=== PATIENT | female | born 2005 | race African-American/Black ===

== ENCOUNTER 2023-12-15 08:00 | Outpatient (CLI) | payer OTHER ==
[2023-12-15 17:33] LABS: BILIRUBIN,URINE NEGATIVE (NEGATIVE); GLUCOSE, URINE (UA) NEGATIVE (NEGATIVE); KETONES,URINE (UA) NEGATIVE (NEGATIVE); LEUKOCYTE ESTERASE, URINE NEGATIVE (NEGATIVE); NITRITE,URINE NEGATIVE (NEGATIVE); OCCULT BLOOD,URINE NEGATIVE (NEGATIVE); PROTEIN,URINE NEGATIVE (NEGATIVE); UROBILINOGEN,URINE 0.2 (NORMAL) E.U./dL (NORMAL)
[2023-12-15 17:58] LABS: CLARITY,URINE CLEAR (CLEAR)
[2023-12-15 17:59] LABS: AMORPHOUS SEDIMENT,UR Rare /LPF; BACTERIA,URINE Few /HPF (None Seen); RBC,URINE None Seen /HPF (0-5); SQUAMOUS EPITHELIAL CELL,UR MANY Squamous (<= Few); WBC,URINE 0-3 /HPF (0-5)
== END 2023-12-15 23:59 | disposition home or self-care (01) ==
LOC: LAB.WC 08:00
PROVIDERS: ATTEND Nurse Practitioner
DX: Z34.00 Encounter for supervision of normal first pregnancy, unspecified trimester (principal)
CPT/HCPCS: 81001; 87086

== ENCOUNTER 2023-12-25 13:07 | Outpatient (CLI) | payer OTHER ==
--- NOTE | 2023-12-25 14:19 | Ultrasound Report ---
PROCEDURE: OB 1st Trimester INDICATIONS: TEST POSITIVE OUTSIDE/PRIOR DATING DATA: Last menstrual period (LMP): 10/24/2023. LMP-based estimated date of delivery (KUSH): 07/30/2024. First dating scan (date and location): Today's exam. Estimated date of delivery (KUSH) from first dating scan: 07/30/2024. TECHNIQUE: Real-time scanning was performed of the fetus and maternal pelvic organs, with image documentation. COMPARISON: None. FINDINGS: Intrauterine gestational sac present. Embryo: Measures 2.24 cm, corresponding to 8 weeks 6 days. Heart rate: 171 bpm. Other: No perigestational fluid collection. Measurement variability in dating: +/- 4 weeks by LMP, +/- 7 days by mean sac diameter (use before 6 weeks gestation if crown-rump length not able to be measured), +/- 5 days by crown-rump length (6-12 weeks gestation). Maternal organs: Left ovary not visualized due to overlying bowel gas. Right ovary is unremarkable. IMPRESSION: Single living intrauterine at 8 weeks 6 days, KUSH of 07/30/2024, concordant with clinical da peggy. Reviewed by: Davie Capps MD on 12/25/2023 2:17 PM PST Approved by: Davie Capps MD on 12/25/2023 2:17 PM PST Station ID: [id number]
== END 2023-12-25 13:08 | disposition home or self-care (01) ==
LOC: DI 13:07
PROVIDERS: ATTEND Nurse Practitioner
DX: Z34.01 Encounter for supervision of normal first pregnancy, first trimester (principal)

== ENCOUNTER 2024-01-05 10:49 | Outpatient (CLI) | payer OTHER ==
[2024-01-05 11:07] LABS: BASOPHILS % (AUTO) 0.4 %; EOSINOPHILS # (AUTO) 0.3 10^3/uL (0.0-0.7); EOSINOPHILS % (AUTO) 3.2 %; HCT - HEMATOCRIT 40.4 % (37.0-47.0); HGB - HEMOGLOBIN 14.1 g/dL (12.0-16.0); MEAN CORPUSCULAR HEMOGLOBIN 31.9 pg (27.0-31.0); MEAN CORPUSCULAR HGB CONC 34.9 g/dL (32.0-36.0); MEAN CORPUSCULAR VOLUME 91.4 fL (81.0-99.0); MEAN PLATELET VOLUME 9.7 fL (7.9-10.8); MONOCYTES # (AUTO) 0.4 10^3/uL (0.0-1.0); MONOCYTES % (AUTO) 4.2 %; NEUTROPHILS # (AUTO) 5.7 10^3/uL (1.5-6.6); PLT - PLATELET COUNT 256 10^3/uL (130-450); RED BLOOD COUNT 4.42 10^6/uL (4.20-5.40); WHITE BLOOD COUNT 8.3 x10^3/uL (4.8-10.8)
[2024-01-06 05:12] LABS: HCV AB Non Reactive (Non Reactive); HIV SCREEN 4TH GENERATION Non Reactive (Non Reactive)
[2024-01-06 06:10] LABS: HBsAG SCREEN Negative (Negative); RPR Non Reactive (Non Reactive)
[2024-01-06 09:09] LABS: VARICELLA-ZOSTER AB IGG <135 index (Immune >165)
== END 2024-01-05 10:50 | disposition home or self-care (01) ==
LOC: LAB 10:49
PROVIDERS: ATTEND Nurse Practitioner
DX: Z34.00 Encounter for supervision of normal first pregnancy, unspecified trimester (principal); Z36.89 Encounter for other specified antenatal screening
CPT/HCPCS: 36415; 85025; 86592; 86762; 86787; 86803; 86850; 86900; 86901; 87340; 87389

== ENCOUNTER 2024-01-08 08:00 | Outpatient (CLI) | payer OTHER ==
[2024-01-08 20:32] LABS: CHLAMYDIA TRACHOMATIS DNA NEGATIVE (NEGATIVE); NEISSERIA GONORRHOEAE DNA NEGATIVE (NEGATIVE)
[2024-01-08 23:27] LABS: BACTERIAL VAGINOSIS DNA POSITIVE (NEGATIVE); CANDIDA GLABRATA DNA NEGATIVE (NEGATIVE); CANDIDA GROUP DNA POSITIVE (NEGATIVE); CANDIDA KRUSEI DNA NEGATIVE (NEGATIVE); TRICHOMONAS VAGINALIS DNA NEGATIVE (NEGATIVE)
== END 2024-01-08 23:59 | disposition home or self-care (01) ==
LOC: LAB.WC 08:00
PROVIDERS: ATTEND Nurse Practitioner
DX: N89.8 Other specified noninflammatory disorders of vagina (principal); Z11.3 Encounter for screening for infections with a predominantly sexual mode of transmission
CPT/HCPCS: 81514; 87491; 87591; 87661

== ENCOUNTER 2024-01-24 08:39 | Outpatient (CLI) | payer OTHER ==
[2024-01-24 22:31] LABS: BACTERIAL VAGINOSIS DNA NEGATIVE (NEGATIVE); CANDIDA GLABRATA DNA NEGATIVE (NEGATIVE); CANDIDA GROUP DNA POSITIVE (NEGATIVE); CANDIDA KRUSEI DNA NEGATIVE (NEGATIVE); TRICHOMONAS VAGINALIS DNA NEGATIVE (NEGATIVE)
== END 2024-01-24 08:40 | disposition home or self-care (01) ==
LOC: LAB.N 08:39
PROVIDERS: ATTEND Nurse Practitioner
DX: N89.8 Other specified noninflammatory disorders of vagina (principal)
CPT/HCPCS: 81514

== ENCOUNTER 2024-02-06 09:25 | Outpatient (CLI) | payer OTHER ==
[2024-02-06 10:04] LABS: THYROID STIMULATING HORMONE 0.67 uIU/mL (0.34-5.60)
== END 2024-02-06 09:26 | disposition home or self-care (01) ==
LOC: LAB 09:25
PROVIDERS: ATTEND Nurse Practitioner
DX: N95.1 Menopausal and female climacteric states (principal); R23.2 Flushing
CPT/HCPCS: 36415; 84443

== ENCOUNTER 2024-02-09 09:22 | Outpatient (CLI) | payer OTHER | END 2024-02-09 09:23 | disposition home or self-care (01) | LOC: LAB.N 09:22 | PROVIDERS: ATTEND Nurse Practitioner | DX: Z34.00 Encounter for supervision of normal first pregnancy, unspecified trimester (principal) | CPT/HCPCS: 36415; 81511 ==

== ENCOUNTER 2024-03-08 11:00 | Outpatient (CLI) | payer OTHER ==
--- NOTE | 2024-03-08 14:53 | XRAY Report ---
Shoulder 2+V RT HISTORY: 18 years of age, PAIN IN RIGHT SHOULDER TECHNIQUE: Shoulder 2+V RT COMPARISON: None. FINDINGS/IMPRESSION: No acute fracture or dislocation. Joint spaces are well maintained. Reviewed by: Dione Clemons MD on 03/08/2024 2:51 PM PDT Approved by: Dione Clemons MD on 03/08/2024 2:51 PM PDT Station ID: [id number]
== END 2024-03-08 11:15 | disposition home or self-care (01) ==
LOC: DI.N 11:00
PROVIDERS: ATTEND Physician Assistant
DX: O99.891 Other specified diseases and conditions complicating pregnancy (principal); M25.551 Pain in right hip; Z3A.00 Weeks of gestation of pregnancy not specified

== ENCOUNTER 2024-03-14 08:30 | Outpatient (CLI) | payer OTHER ==
--- NOTE | 2024-03-14 12:57 | Ultrasound Report ---
PROCEDURE: OB Anatomy Scan INDICATIONS: SUPERVISION OF OUTSIDE/PRIOR DATING DATA: Last menstrual period (LMP): 10/24/2023. LMP-based estimated date of delivery (KUSH): 07/30/2024. First dating scan (date and location): 12/25/2023. Estimated date of delivery (KUSH) from first dating scan: 07/30/2024. TECHNIQUE: Real-time scanning was performed of the fetus, with image documentation and biometric measurements. COMPARISON: 12/25/2023 FINDINGS: General: A single living intrauterine gestation is present. Presentation: Vertex Placenta: Placental position is posterior, without previa. Amniotic fluid index: 10.6 cm, within normal limits for gestational age. heart rate: 153 beats per minute. Maternal cervical canal: 2.8 cm long; normal length is 2.5 cm or more. biometrics: Biparietal diameter: 4.9 cm, 21 weeks, 76.2% Head circumference: 18.1 cm, 20 weeks and 4 days, 52.4% Abdominal circumference: 13.9 cm, 19 weeks and 3 days, 17.3% Femur length: 3.18 cm, 19 weeks and 6 days, 28.1% Estimated gestational age from initial scan: 20 weeks and 2 days Composite gestational age from present scan: 20 weeks and 1 day Estimated weight and percentile: 310.7 g, 19.2% Measurement variability in biometric dating: +/- 10 days from 12-20 weeks gestation, +/- 2 weeks from 20-30 weeks gestation, +/- 3 weeks at 30 weeks gestation or later. Anatomic survey: Neuro: Ventricles are normal at less than 10 mm. Cisterna magna is normal at 3-11 mm. Cerebellum is normal in size and morphology. Nuchal skin fold: Normal at less than 6 mm between 14 and 20 weeks gestational age. Face: Nose and lips, facial profile are normal. Spine: No evidence for spina bifida. Heart: 4-chambered heart is present, with normal ventricular outflow tracts. Diaphragm: Diaphragm is intact. Stomach: Left-sided stomach is present. Kidneys: No hydronephrosis. Normal is less than 5 mm in 2nd trimester, less than 7 mm in 3rd trimester. Cord: 3 vessel cord has orthotopic insertion. Bladder: Normal in size. Extremities: All 4 extremities are visualized. IMPRESSION: Living intrauterine gestation at 20 weeks and 2 days. EFW at the 19.2 percentile, within normal limit s. No significant abnormalities on routine anatomic survey. Reviewed by: Rivas Miranda MD on 03/14/2024 12:56 PM PDT Approved by: Rivas Miranda MD on 03/14/2024 12:56 PM PDT Station ID: [id number]
== END 2024-03-14 08:31 | disposition home or self-care (01) ==
LOC: DI 08:30
PROVIDERS: ATTEND Nurse Practitioner
DX: O92.20 Unspecified disorder of breast associated with pregnancy and the puerperium (principal)

== ENCOUNTER 2024-03-14 08:31 | Outpatient (CLI) | payer OTHER ==
--- NOTE | 2024-03-15 08:45 | Ultrasound Report ---
LIMITED ULTRASOUND OF LEFT BREAST: 03/14/2024 CLINICAL: Palpable left breast lump by physician. No prior exams were available for comparison. Color flow and real-time ultrasound of the left breast 3 o'clock region were performed. Lomas scale images of the real-time examination were reviewed. No significant abnormalities were seen sonographically in the left breast. Specifically, no finding to correspond to the patient's palpable abnormality. IMPRESSION: NEGATIVE There is no sonographic correlate to the patient's palpable abnormality and no evidence of malignancy . Screening mammography beginning at age 40 is recommended. Findings and recommendations were conveyed to the patient at time of exam. This exam was interpreted at Station ID: [id number]. Electronically Signed By: Sue joseph/:03/14/2024 10:01:48 letter sent: No_Letter Ultrasound BI-RADS: 1 Negative BI-RADS CATEGORY: (1) - 1 Unspecified - other recall n/a LATERALITY: (B)
== END 2024-03-14 08:32 | disposition home or self-care (01) ==
LOC: DI 08:31
PROVIDERS: ATTEND Nurse Practitioner
DX: N64.9 Disorder of breast, unspecified (principal)

== ENCOUNTER 2024-04-01 08:00 | Outpatient (CLI) | payer OTHER ==
[2024-04-02 00:47] LABS: BACTERIAL VAGINOSIS DNA POSITIVE (NEGATIVE); CANDIDA GLABRATA DNA NEGATIVE (NEGATIVE); CANDIDA GROUP DNA POSITIVE (NEGATIVE); CANDIDA KRUSEI DNA NEGATIVE (NEGATIVE); TRICHOMONAS VAGINALIS DNA NEGATIVE (NEGATIVE)
== END 2024-04-01 23:59 | disposition home or self-care (01) ==
LOC: LAB.WC 08:00
PROVIDERS: ATTEND Nurse Practitioner
DX: N89.8 Other specified noninflammatory disorders of vagina (principal)
CPT/HCPCS: 81514

== ENCOUNTER 2024-04-10 10:05 | Outpatient (CLI) | payer OTHER ==
[2024-04-10 11:32] LABS: BILIRUBIN,URINE NEGATIVE (NEGATIVE); GLUCOSE, URINE (UA) NEGATIVE (NEGATIVE); KETONES,URINE (UA) NEGATIVE (NEGATIVE); LEUKOCYTE ESTERASE, URINE LARGE (NEGATIVE); NITRITE,URINE NEGATIVE (NEGATIVE); OCCULT BLOOD,URINE TRACE-INTA (NEGATIVE); PROTEIN,URINE NEGATIVE (NEGATIVE); UROBILINOGEN,URINE 0.2 (NORMAL) E.U./dL (NORMAL)
--- NOTE | 2024-04-10 11:33 | PROVIDER PROGRESS NOTE ---
<Odalis Alan - Last Filed: 04/10/24 11:43> - HPI Chief Complaint: Vaginal bleeding - Exam 18 yo @ 24+1 weeks gestation presents to [facility] for vaginal spotting. Some period like cramping, feels tightening but not pain. Cervix closed, erythemic and friable. Copious curd-like discharge to vaginal vault. No distinct odor. EFM Baseline FHT 150's moderate variability, +10x10 acceleration. Uterine activity: irregular, mild contractions 40-50 seconds. Resting tone soft. Recent dx with BV and yeast in clinic. 04/01/24 + yeast and BV (fluconazole and flagyl), 01/24/24 + yeast (treated fluconazole) 01/08/24 + yeast (treated fluconazole) Agreeable to completing 1 hr gtt/ 24-28 week labs while on unit. Discussed correlation between recurrent yeast infections and elevated glucose levels. We discussed the role extra estrogen can play in vaginal darius balance as well. Discussed combination treatment of flagyl and monistat. Patient agreeable. Will send to [facility] through [facility]. - Plan Plan: UA, vaginosis, GCCT Offer to let her stay for 1 hour gtt if desired. <Negro Cuevas - Last Filed: 04/11/24 07:14> - HPI Current : Current EDU 07/30/24 Gestation 24 Weeks and 1 Days 1 Para 0 Vital Signs Temperature 97.9 F 04/10/24 11:00 Heart Rate 85 04/10/24 11:00 Respiratory Rate 18 04/10/24 11:00 Blood Pressure 102/69 04/10/24 11:00 Temperature 97.9 F 04/10/24 11:00 Heart Rate 85 04/10/24 11:00 Respiratory Rate 18 04/10/24 11:00 Blood Pressure 102/69 04/10/24 11:00 O2 Saturation If not protocol: Oxygen Flow, liters/minute - Procedures NST Procedure: NST Procedure Start Date 04/10/24 Start Time 10:16 Stop Time 10:51 Vibroacoustic Stimulation Used No Patient States Movement Yes - Plan Plan: Agree with above. I examined patient myself and discussed care with student coremaker pipe Dayanna and agree with plan of care. Patient is doing well other than recurrent yeast infection.
[2024-04-10 11:43] LABS: BACTERIA,URINE Few /HPF (None Seen); CLARITY,URINE HAZY (CLEAR); SQUAMOUS EPITHELIAL CELL,UR MOD Squamous (<= Few)
[2024-04-10 11:53] VITALS: BP 102/69
[2024-04-10 12:42] LABS: BASOPHILS # (AUTO) 0.1 10^3/uL (0.0-0.1); BASOPHILS % (AUTO) 0.4 %; EOSINOPHILS # (AUTO) 0.3 10^3/uL (0.0-0.7); EOSINOPHILS % (AUTO) 2.6 %; HCT - HEMATOCRIT 38.8 % (37.0-47.0); HGB - HEMOGLOBIN 13.2 g/dL (12.0-16.0); LYMPHOCYTES # (AUTO) 1.9 10^3/uL (1.5-3.5); LYMPHOCYTES % (AUTO) 16.8 %; MEAN CORPUSCULAR VOLUME 93.9 fL (81.0-99.0); MEAN PLATELET VOLUME 10.5 fL (7.9-10.8); MONOCYTES # (AUTO) 0.4 10^3/uL (0.0-1.0); MONOCYTES % (AUTO) 3.9 %; NEUTROPHILS # (AUTO) 8.6 10^3/uL (1.5-6.6); NEUTROPHILS % (AUTO) 75.9 %; PLT - PLATELET COUNT 256 10^3/uL (130-450); RED BLOOD COUNT 4.13 10^6/uL (4.20-5.40); RED CELL DISTRIBUTION WIDTH 11.9 % (12.0-15.0); WHITE BLOOD COUNT 11.4 x10^3/uL (4.8-10.8)
[2024-04-10 13:03] LABS: ESTIMATED AVERAGE GLUCOSE 80 mg/dL (70-100); HEMOGLOBIN A1c% 4.4 % (4.27-6.07)
[2024-04-10 14:11] LABS: BACTERIAL VAGINOSIS DNA NEGATIVE (NEGATIVE); CANDIDA GLABRATA DNA NEGATIVE (NEGATIVE); CANDIDA GROUP DNA POSITIVE (NEGATIVE); CANDIDA KRUSEI DNA NEGATIVE (NEGATIVE); TRICHOMONAS VAGINALIS DNA NEGATIVE (NEGATIVE)
[2024-04-10 16:16] LABS: CHLAMYDIA TRACHOMATIS DNA NEGATIVE (NEGATIVE); NEISSERIA GONORRHOEAE DNA NEGATIVE (NEGATIVE)
== END 2024-04-10 12:38 | disposition home or self-care (01) ==
LOC: WFO 10:05 → FBP 10:06 → WFO 12:38
PROVIDERS: ATTEND Obstetrics & Gynecology
DX: O98.812 Other maternal infectious and parasitic diseases complicating pregnancy, second trimester (principal); B37.9 Candidiasis, unspecified; Z3A.24 24 weeks gestation of pregnancy
CPT/HCPCS: 36415; 81001; 81514; 82950; 83036; 85025; 87086; 87491; 87591; 87661; 99215

== ENCOUNTER 2024-05-09 10:09 | Emergency (ER) | payer OTHER ==
--- NOTE | 2024-05-09 11:26 | ED Physician Documentation ---
History of Present Illness - Stated complaint Stated Complaint: RT LEG PX - Chief complaint Chief Complaint: Ext Problem - Additonal information Additional information: 18 yo female 28 weeks , here for right calf pain. Pain started one week ago worse when she is in the shower, last night got worse and couldnt walk or lift up her leg and shooting up calf and tender to walters area and shoots up back of knee and back of thigh. No swelling, redness, no SOB, no CP, no recent illnesses. Pain is not constant dull ache. Has not taken anything for pain. PD PAST MEDICAL HISTORY - Past Medical History Past Medical History: No - Past Surgical History Past Surgical History: No - Allergies Allergies/Adverse Reactions: Allergies Allergy/AdvReac Type Severity Reaction Status Date / Time No Known Drug Allergies Allergy Verified 05/09/24 10:30 - Social History Does the pt smoke?: No Smoking Status: Never smoker Does the pt drink ETOH?: No Does the pt have substance abuse?: No - Immunizations Immunizations are current?: Yes PD ED PE NORMAL - Vitals Vital signs reviewed: Yes - General General: Alert and oriented X 3 - HEENT HEENT: Atraumatic - Derm Derm: Normal color, Warm and dry, No rash - Extremities Extremities: Other (right calf tenderness with palpation, strong dorsalis pedis pulse. tenderness does not get worse with flexion extension of knee or ankle. ) - Psych Psych: Normal mood Results - Vitals Vitals: Vital Signs - 24 hr 05/09/24 10:26 Temperature 36.6 C Heart Rate 91 Respiratory 20 Rate Blood Pressure 134/71 H O2 Saturation 100 Oxygen O2 Source Room air - Labs Labs: Laboratory Tests 05/09/24 05/09/24 12:05 12:05 WBC 10.8 RBC 4.14 L Hgb 12.9 Hct 39.2 MCV 94.7 MCH 31.2 H MCHC 32.9 RDW 11.3 L Plt Count 228 MPV 10.5 Neut # (Auto) 7.9 H Lymph # (Auto) 1.9 [place] # (Auto) 0.6 Eos # (Auto) 0.3 Baso # (Auto) 0.1 Absolute Nucleated RBC 0.00 Nucleated RBC % 0.0 Sodium 136 Potassium 3.7 Chloride 106 Carbon Dioxide 23 Anion Gap 7.0 BUN 5 L Creatinine 0.6 Estimated GFR (MDRD) 154 Glucose 81 Calcium 9.7 Magnesium 1.7 Total Bilirubin 0.5 AST 47 H ALT 52 Alkaline Phosphatase 87 Total Protein 7.2 Albumin 4.2 Globulin 3.0 Albumin/Globulin Ratio 1.4 Lipase 43 PD Medical Decision Making - ED course ED course: 18 yo female here for right calf pain, differentials considered but not limited to, DVT, muscle strain, electrolyte abnormalities. US complete and does not reveal DVT or other abnormalities. Calf is not swollen, no erythema, positive dorsalis pedis pulses. No lab abnormalities. BP WNL, making me less worried about possible pre-eclampsia Not entirely sure what is causing this calf pain but likely nothing emergent. Pt told to follow up with PCP as soon as possible for possible physical therapy referral and continue Tylenol for pain and discomfort. All questions answered, return precautions given pt safe for discharge. She as offered Tylenol here in ER but kindly declined. Departure - Departure Disposition: 01 Home, Self Care Clinical Impression: Right calf pain Forms: PCP List
[2024-05-09 12:09] LABS: BASOPHILS # (AUTO) 0.1 10^3/uL (0.0-0.1); BASOPHILS % (AUTO) 0.5 %; EOSINOPHILS # (AUTO) 0.3 10^3/uL (0.0-0.7); HCT - HEMATOCRIT 39.2 % (37.0-47.0); HGB - HEMOGLOBIN 12.9 g/dL (12.0-16.0); LYMPHOCYTES # (AUTO) 1.9 10^3/uL (1.5-3.5); LYMPHOCYTES % (AUTO) 17.5 %; MEAN CORPUSCULAR HEMOGLOBIN 31.2 pg (27.0-31.0); MEAN CORPUSCULAR HGB CONC 32.9 g/dL (32.0-36.0); MEAN CORPUSCULAR VOLUME 94.7 fL (81.0-99.0); MEAN PLATELET VOLUME 10.5 fL (7.9-10.8); MONOCYTES # (AUTO) 0.6 10^3/uL (0.0-1.0); MONOCYTES % (AUTO) 5.6 %; NEUTROPHILS # (AUTO) 7.9 10^3/uL (1.5-6.6); PLT - PLATELET COUNT 228 10^3/uL (130-450); RED BLOOD COUNT 4.14 10^6/uL (4.20-5.40); RED CELL DISTRIBUTION WIDTH 11.3 % (12.0-15.0); WHITE BLOOD COUNT 10.8 x10^3/uL (4.8-10.8)
[2024-05-09 12:21] LABS: ALBUMIN 4.2 g/dL (3.2-5.5); ALBUMIN/GLOBULIN RATIO 1.4 (1.0-2.2); BILIRUBIN,TOTAL 0.5 mg/dL (0.2-1.0); CALCIUM 9.7 mg/dL (8.5-10.3); CREATININE 0.6 mg/dL (0.6-1.3); MAGNESIUM 1.7 mg/dL (1.7-2.3); POTASSIUM 3.7 mmol/L (3.5-4.5); TOTAL PROTEIN 7.2 g/dL (6.4-8.9)
[2024-05-09 12:40] VITALS: BP 114/67; O2SAT 98
--- NOTE | 2024-05-09 12:41 | Ultrasound Report ---
PROCEDURE: Duplex Ext Veins Right INDICATIONS: right calf/leg pain; TECHNIQUE: Real-time imaging, as well as color and pulse Doppler interrogation, were performed of the lower extr emity deep veins from the inguinal ligament to the popliteal fossa. Attempted visualization of the ca lf veins was performed. COMPARISON: None. FINDINGS: The deep veins are normally compressible, and free of intraluminal thrombus. Color and pu lse Doppler demonstrate normal phasic intraluminal flow. There is normal augmentation response to di stal compression maneuver. IMPRESSION: No deep venous thrombosis of the right lower extremity. Reviewed by: Russ Browning MD on 05/09/2024 12:39 PM PDT Approved by: Russ Browning MD on 05/09/2024 12:39 PM PDT Station ID: [id number]
== END 2024-05-09 12:40 | disposition home or self-care (01) ==
LOC: ED 10:09
DX: M79.661 Pain in right lower leg (principal)
CPT/HCPCS: 36415; 80053; 83690; 83735; 85025; 99283; 99284

== ENCOUNTER 2024-05-13 08:00 | Outpatient (CLI) | payer OTHER ==
[2024-05-13 23:50] LABS: BACTERIAL VAGINOSIS DNA NEGATIVE (NEGATIVE); CANDIDA GLABRATA DNA NEGATIVE (NEGATIVE); CANDIDA GROUP DNA POSITIVE (NEGATIVE); CANDIDA KRUSEI DNA NEGATIVE (NEGATIVE); TRICHOMONAS VAGINALIS DNA NEGATIVE (NEGATIVE)
== END 2024-05-13 23:59 | disposition home or self-care (01) ==
LOC: LAB.WCP 08:00
PROVIDERS: ATTEND Obstetrics & Gynecology
DX: N89.8 Other specified noninflammatory disorders of vagina (principal)
CPT/HCPCS: 81514

== ENCOUNTER 2024-05-20 12:41 | Outpatient (CLI) | payer OTHER ==
--- NOTE | 2024-05-20 15:00 | Ultrasound Report ---
PROCEDURE: OB Follow up INDICATIONS: UTERINE SIZE DATE DISCREPANCY OUTSIDE/PRIOR DATING DATA: Last menstrual period (LMP): 10/24/2023. LMP-based estimated date of delivery (KUSH): 07/30/2024. First dating scan (date and location): 12/25/2023. Estimated date of delivery (KUSH) from first dating scan: 07/30/2024. The below data below was generated using the ultrasound KUSH of 07/30/2024 TECHNIQUE: Real-time scanning was performed of the fetus, with image documentation and biometric measurements. Endovaginal scanning: Not performed. COMPARISON: OB ultrasound 03/14/2024 FINDINGS: General: A single living intrauterine gestation is present. Presentation: Vertex Placenta: Placental position is posterior, without previa. Amniotic fluid index: 11.9 cm, within normal limits for gestational age. Largest pocket 4.6 cm heart rate: 162 beats per minute. Maternal cervical canal: 3.7 cm long; normal length is 2.5 cm or more. Closed biometrics: Biparietal diameter: 7.3 cm, 29 weeks 1 day. 18 weeks 4 days. 18% Head circumference: 27.2 cm, 29 weeks 5 days. 14% Abdominal circumference: 24.1 cm. 28 weeks 3 days. 10% Femur length: 5.8 cm. 30 weeks 1 day. 42%. Estimated gestational age from initial scan: 29 weeks 6 days Composite gestational age from present scan: 29 weeks 3 days Estimated weight and percentile: 1346 g, 17 percentile Measurement variability in biometric dating: +/- 10 days from 12-20 weeks gestation, +/- 2 weeks from 20-30 weeks gestation, +/- 3 weeks at 30 weeks gestation or more. IMPRESSION: 1. Marr living intrauterine at 29 weeks 3 days based on today's ultrasound. This is co ncordant with prior dating. Fetus is in the 17 percentile for weight. 2. Normal placenta and amniotic fluid. Reviewed by: Andrés Adame MD on 05/20/2024 2:59 PM PDT Approved by: Andrés Adame MD on 05/20/2024 2:59 PM PDT Station ID: [id number]
== END 2024-05-20 12:42 | disposition home or self-care (01) ==
LOC: DI 12:41
PROVIDERS: ATTEND Nurse Practitioner
DX: O26.843 Uterine size-date discrepancy, third trimester (principal); Z3A.29 29 weeks gestation of pregnancy

== ENCOUNTER 2024-06-07 21:48 | Outpatient (CLI) | payer OTHER ==
[2024-06-07 22:10] VITALS: BP 121/82
--- NOTE | 2024-06-08 11:19 | PROVIDER PROGRESS NOTE ---
- HPI Chief Complaint: Decreased movement Current : patient presents for decreased movement. here with her . anxious. Once on monitor feeling baby moving well. ready for d/c. no headache, n/v. Current EDU 07/30/24 Gestation 32 Weeks and 3 Days 1 Para 0 Vital Signs Temperature 97.9 F 06/07/24 22:01 Heart Rate 80 06/07/24 22:01 Respiratory Rate 16 06/07/24 22:01 Blood Pressure 121/82 H 06/07/24 22:01 - Exam appears well. abdomen not tender. no swelling. - Procedures OB Procedure Performed: NST Diagnosis/Indication for NST: Decreased movement NST Procedure: NST Procedure Start Date 06/07/24 Start Time 21:56 Stop Time 22:26 Vibroacoustic Stimulation Used No Patient States Movement Yes Service Date of procedure: 06/07/24 Procedure Details: Reactive for of 32 weeks gestation or more. NST tracing contains at least two heart rate accelerations that are at least 15 beats per minute above the baseline rate and lasting at least 15 seconds from onset to return to baseline within a twenty minute period. Findings: reactive NST - Plan Plan: discharge home. routine care
== END 2024-06-07 22:45 | disposition home or self-care (01) ==
LOC: WFO 21:48 → FBP 21:50 → WFO 22:45
PROVIDERS: ATTEND Obstetrics & Gynecology
DX: O36.8130 Decreased fetal movements, third trimester, not applicable or unspecified (principal); Z3A.32 32 weeks gestation of pregnancy
CPT/HCPCS: 59025; 99213

== ENCOUNTER 2024-06-24 08:00 | Outpatient (CLI) | payer OTHER ==
[2024-06-24 15:54] LABS: RUPTURE OF MEMBRANES PLUS NEGATIVE (NEGATIVE)
== END 2024-06-24 23:59 | disposition home or self-care (01) ==
LOC: LAB.WC 08:00
PROVIDERS: ATTEND Nurse Practitioner
DX: N89.8 Other specified noninflammatory disorders of vagina (principal)
CPT/HCPCS: 84112

== ENCOUNTER 2024-07-03 08:00 | Outpatient (CLI) | payer OTHER ==
[2024-07-03 23:32] LABS: BACTERIAL VAGINOSIS DNA NEGATIVE (NEGATIVE); CANDIDA GLABRATA DNA NEGATIVE (NEGATIVE); CANDIDA GROUP DNA POSITIVE (NEGATIVE); CANDIDA KRUSEI DNA NEGATIVE (NEGATIVE); TRICHOMONAS VAGINALIS DNA NEGATIVE (NEGATIVE)
== END 2024-07-03 23:59 | disposition home or self-care (01) ==
LOC: LAB.WC 08:00
PROVIDERS: ATTEND Obstetrics & Gynecology
DX: O99.891 Other specified diseases and conditions complicating pregnancy (principal); N89.8 Other specified noninflammatory disorders of vagina; Z36.85 Encounter for antenatal screening for Streptococcus B
CPT/HCPCS: 81514; 87081; 87797

== ENCOUNTER 2024-07-12 11:00 | Outpatient (CLI) | payer OTHER ==
--- NOTE | 2024-07-12 13:43 | Ultrasound Report ---
PROCEDURE: OB Follow up INDICATIONS: UTERINE SIZE DATE DISCREPENCY OUTSIDE/PRIOR DATING DATA: Last menstrual period (LMP): 10/24/2023. LMP-based estimated date of delivery (KUSH): 07/30/2024. First dating scan (date and location): 12/25/2023. Estimated date of delivery (KUSH) from first dating scan: 07/30/2024. TECHNIQUE: Real-time scanning was performed of the fetus, with image documentation and biometric measurements. COMPARISON: 05/20/2024 FINDINGS: General: A single living intrauterine gestation is present. Presentation: Vertex Placenta: Placental position is posterior, without previa. Amniotic fluid index: 13.2 cm, within normal limits for gestational age. heart rate: 147 beats per minute. Maternal cervical canal: Not imaged biometrics: Biparietal diameter: 8.73 cm, 35 weeks and 2 days, 12.9% Head circumference: 31.7 cm, 35 weeks and 5 days, 3.3% Abdominal circumference: 31.35 cm, 35 weeks and 2 days, 11.2% Femur length: 6.95 cm, 35 weeks and 5 days, 11.4% Estimated gestational age from initial scan: 37 weeks and 3 days Composite gestational age from present scan: 35 weeks and 4 days Estimated weight and percentile: 2673 g, 13% IMPRESSION: Living intrauterine gestation in vertex presentation. Normal ANDREA. EFW at the 13th percentile, previously 17 percentile, lower limit of normal. Reviewed by: Rivas Miranda MD on 07/12/2024 1:41 PM PDT Approved by: Rivas Miranda MD on 07/12/2024 1:41 PM PDT Station ID: [id number]
== END 2024-07-12 11:01 | disposition home or self-care (01) ==
LOC: DI 11:00
PROVIDERS: ATTEND Nurse Practitioner
DX: O26.843 Uterine size-date discrepancy, third trimester (principal); Z3A.35 35 weeks gestation of pregnancy

== ENCOUNTER 2024-07-23 22:38 | Inpatient (IN) | payer OTHER ==
[2024-07-24] MEDS ORDERED: lidocaine 1% 20 ML MDV ID PRN (01:03)
[2024-07-24] MEDS ORDERED: miSOPROStoL 200 MCG TABLET PR PRN (01:03)
[2024-07-24] MEDS ORDERED: TRANEXAMIC ACID IN NACL 1,000 MG/100 ML BAG IV PRN (01:03)
[2024-07-24] MEDS ORDERED: miSOPROStoL 200 MCG TABLET BC PRN (01:03)
[2024-07-24] MEDS ORDERED: OXYTOCIN/SODIUM CHLORIDE 500 ML IV PRN (01:03)
[2024-07-24] MEDS ORDERED: CARBOPROST TROMETHAMINE 250 MCG/ML VIAL IM PRN (01:03)
[2024-07-24] MEDS ORDERED: fentaNYL 100 MCG/2 ML VIAL IVP PRN (01:03)
[2024-07-24] MEDS ORDERED: LABETALOL 20 MG/4 ML SYRINGE IVP PRN ×3 (01:03)
[2024-07-24] MEDS ORDERED: TERBUTALINE 1 MG/ML VIAL SUBQ PRN (01:03)
[2024-07-24] MEDS ORDERED: hydrALAZINE INJ 20 MG/ML VIAL IVP PRN ×2 (01:03)
[2024-07-24] MEDS ORDERED: SODIUM CHLORIDE FLUSH 0.9% 10 ML SYRINGE IVP PRN (01:03)
[2024-07-24] MEDS ORDERED: METHYLERGONOVINE 0.2 MG/ML VIAL IM PRN (01:03)
[2024-07-24] MEDS ORDERED: OXYTOCIN 10 UNIT/ML VIAL IM PRN (01:03)
[2024-07-24] MEDS ORDERED: NIFEdipine 10 MG CAPSULE PO PRN (01:03)
[2024-07-24] MEDS: LACTATED RINGERS 1,000 ML IV PRN (01:30)
[2024-07-24 01:45] LABS: BASOPHILS # (AUTO) 0.1 10^3/uL (0.0-0.1); BASOPHILS % (AUTO) 0.5 %; EOSINOPHILS # (AUTO) 0.7 10^3/uL (0.0-0.7); EOSINOPHILS % (AUTO) 5.5 %; HCT - HEMATOCRIT 37.9 % (37.0-47.0); HGB - HEMOGLOBIN 12.8 g/dL (12.0-16.0); LYMPHOCYTES # (AUTO) 2.4 10^3/uL (1.5-3.5); LYMPHOCYTES % (AUTO) 19.5 %; MEAN CORPUSCULAR HEMOGLOBIN 29.6 pg (27.0-31.0); MEAN CORPUSCULAR HGB CONC 33.8 g/dL (32.0-36.0); MEAN CORPUSCULAR VOLUME 87.7 fL (81.0-99.0); MEAN PLATELET VOLUME 11.4 fL (7.9-10.8); MONOCYTES # (AUTO) 0.7 10^3/uL (0.0-1.0); MONOCYTES % (AUTO) 5.9 %; NEUTROPHILS # (AUTO) 8.5 10^3/uL (1.5-6.6); NEUTROPHILS % (AUTO) 68.4 %; PLT - PLATELET COUNT 218 10^3/uL (130-450); RED BLOOD COUNT 4.32 10^6/uL (4.20-5.40); RED CELL DISTRIBUTION WIDTH 11.7 % (12.0-15.0); WHITE BLOOD COUNT 12.4 x10^3/uL (4.8-10.8)
[2024-07-24 01:57] LABS: ALBUMIN 3.9 g/dL (3.2-5.5); ALBUMIN/GLOBULIN RATIO 1.4 (1.0-2.2); BILIRUBIN,TOTAL 0.4 mg/dL (0.2-1.0); CALCIUM 9.6 mg/dL (8.5-10.3); CREATININE 0.8 mg/dL (0.6-1.3); TOTAL PROTEIN 6.6 g/dL (6.4-8.9)
[2024-07-24] MEDS ORDERED: SODIUM CHLORIDE FLUSH 0.9% 10 ML SYRINGE IVP SCH (02:00)
[2024-07-24] MEDS ORDERED: ROPIVACAINE 0.2% 200 MG/100 ML BAG EP ONE (02:17)
[2024-07-24] MEDS ORDERED: LIDOCAINE-MPF 2% 5 ML VIAL ONE ×2 (02:18→07:50)
[2024-07-24] MEDS ORDERED: LIDOCAINE 2%-EPI 1:100000 20 ML MDV ONE (02:18)
--- NOTE | 2024-07-24 02:46 | HISTORY & PHYSICAL EXAMINATION ---
Admit History - Visit Reason Visit Reason: Contractions - : 1 Parity: 0 Premature: 0 Ectopic: 0 : 0 Care: positive: None Risk/History: positive: None Complications This : positive: None Smoking Status: Never smoker - Mother's Labs Mother's Blood Type: positive: O Mother's RH: positive: Positive GBS: positive: Group B Strep Positive Rubella Status: positive: Immune - Other Maternal History Other Maternal History: HPI: This 19 yo @ 39+1 weeks by LMP and confirmed by 8+6 week ultrasound. She was having some intermittent contractions the past 24-48 hours and had some light pink spotting prior to her appointment yesterday. After her membrane sweep, about 4:30, her contractions became more regular and painful. She presented to L&D just after 22:00, her cervical exam was unchanged from clinic 2-3cm, intact and vertex by exam. She wasnt able to manage the pain well and requested admission for pain management and labor support. Requesting an epidural. She has been a patient of [facility] for the duration of her which has remained uncomplicated. Her moods have been stable on 50mg Zoloft. She now meets criteria for gestational hypertension. Her blood pressure in clinic yesterday was 122/90, several elevated BP (highest 149/93) during her time in the hospital. ROS: No Headache, visual changes or right upper quadrant abdominal pain. Denies significant N/V. Denies urinary urgency or dysuria. All other symptoms reviewed and were negative except per HPI. In the event of an emergency, accepts the administration of blood products. Labs: H&H 12.8/37.9, PLT 218. Creatinine 0.8, AST 22, ALT 13 Last u/s EFW: 2673g, 13%; ANDREA 13.2 Total maternal weight gain: OB Hx: G1: current Medical Hx: No significant Surgical Hx: None Social Hx: Monogamous with male partner. Denies current use of alcohol or tobacco, marijuana or other recreational drugs. Reports that she is safe in current relationship. Family Hx: Denies family history of congenital anomalies, Cystic Fibrosis or chromosomal abnormalities Allergies: NKDA Medications: LDASA, vitamin, Zoloft 50mg G-1 LMP: 10/24/2023 KUSH by LMP: 07/30/2024 US: 12/25/2023 c/w LMP Final KUSH: 07/30/2024 FOB: Nam Schulz (J) sex: female by [place]. Anxiety: Lexapro and hydroxyzine - encouraged to seek counselling resources. LDASA ordered to start at 12 weeks (ethnicity and nulliparous) [employer] [place] Size less than dates: -EFW on 05/20: 17 percentile Repeat EFW ordered 07/03 Recurrent yeast infections: Has tried oral and vaginal treatment. -Using clotrimazole every other day. Pre- Weight:110 BMI: 18.5 Blood type: O+ Antibody: Negative CBC: PLT 256 HCT 40.4 HGB 14.1 RUB: Immune VZV: Non-Immune HBsAg: Negative HepC: NR RPR/AB-EIA: NR HIV: NR PAP: <21 in first trimester. GC/CT: 01/08/24 HSV: denies Genetic testing: QUAD- neg 02/08 Covid: vaccinated Flu: vaccinated-[facility] FAS: 03/14/2024 Placenta: Posterior Cord: 3VC ANDREA: 10.6 cm EFW: 310.7g 19.2%tile 50gm OGCT: 04/19 - 113; A1C - 4.4 3HR GTT: TDAP: 05/13 Breast Pump: 04/29, Plans to bottle feed. 3rd trimester PLT 256 HGB 13.2 HCT 38.8 Physical exam: Normocephalic, atraumatic Heart RRR w/o M/G/R Lungs CTAB Abdomen gravid, soft, nontender. EFW 2900g FHR baseline 120, moderate variability, + accelerations, no decelerations Contractions palpate moderate every 2-4 minutes with soft resting tone SVE 2/90/-2 , vertex, membranes intact Bilateral LE's no edema Mood is good. Assessment: 19 yo @ 39+1 weeks gestation 8+6 wk U/S Gestational hypertension Early labor FHR 120 Cat 1 GBS POSITIVE Plan: Admit to [facility] for expectant management Continuous monitoring Ampicillin for GBS prophylaxis Monitor BP closely, obtain urine PCR, repeat serum labs and physician consult as indicated Lucioi prn Epidural PRN Maternal Request Anticipate . - HPI Current EDU 07/30/24 Gestation 39 Weeks and 1 Days 1 Para 0 Vital Signs Temperature 36.9 C 07/23/24 22:46 Heart Rate 83 07/23/24 22:46 Respiratory Rate 16 07/23/24 22:46 Blood Pressure 135/96 H 07/23/24 22:46 Temperature 36.9 C 07/24/24 01:30 Heart Rate 83 07/23/24 22:46 Respiratory Rate 16 07/23/24 22:46 Blood Pressure 135/96 H 07/23/24 22:46 O2 Saturation If not protocol: Oxygen Flow, liters/minute - NST Procedure NST Procedure Start Date 07/23/24 Start Time 22:45 Stop Time 23:15 Vibroacoustic Stimulation Used No Patient States Movement Yes Meds/Allgy - Allergies Allergies/Adverse Reactions: Allergies Allergy/AdvReac Type Severity Reaction Status Date / Time No Known Drug Allergies Allergy Verified 05/09/24 10:30 Review of Systems - Constitutional Constitutional: denies: Fatigue, Fever, Chills, Malaise - Eyes Eyes: denies: Blurred vision, Spots in vision, Dipolpia - Cardiovascular Cariovascular: denies: Irregular heart rate, Palpitations, Chest pain, Edema - Respiratory Respiratory: denies: Cough, Wheezing, SOB at rest - Gastrointestinal Gastrointestinal: denies: Constipation, Diarrhea, Nausea, Vomiting - Genitourinary Genitourinary: denies: Dysuria - Integumentary Integumentary: denies: Rash, Pruritis - Neurological Neurological: denies: Headache - All Other Systems All Other Systems: reports: Reviewed and negative Physical - Abdominal Exam Vital Signs: Temp Pulse Resp BP Pulse Ox O2 Flow Rate 36.9 C 83 16 135/96 H 07/24/24 01:30 07/23/24 22:46 07/23/24 22:46 07/23/24 22:46 Contraction Frequency (min/apart): 2-3 Contraction Intensity: positive: Moderate to strong Uterine Resting Tone: positive: Soft - Monitoring Heart Rate Baseline: 130 Strip Review: positive: Category I - Presentation Presentation: positive: Vertex - Vaginal Exam Membranes: positive: Membranes intact Dilation (in cm): 2 Effacement (%): 80 Station: positive: 0 Cervical Position: positive: Posterior - Speculum Exam Speculum Exam Performed: positive: No Plan for Labor - Plan For Labor I expect patient to be DC'd or transferred within 96 hours.: Yes
[2024-07-24] MEDS ORDERED: ROPIVACAINE 0.2% 200 MG/100 ML BAG EP PRN (03:01)
[2024-07-24] MEDS ORDERED: ePHEDrine 50 MG/ML VIAL IVP PRN (03:01)
[2024-07-24] MEDS ORDERED: NALBUPHINE 10 MG/ML AMP IVP PRN (03:01)
[2024-07-24] MEDS ORDERED: METOCLOPRAMIDE 10 MG/2 ML VIAL IVP PRN (03:01)
[2024-07-24] MEDS ORDERED: diphenhydrAMINE INJ 50 MG/ML VIAL IVP PRN (03:01)
[2024-07-24] MEDS ORDERED: NALOXONE 0.4 MG/ML VIAL IVP PRN (03:01)
[2024-07-24] MEDS ORDERED: ONDANSETRON 4 MG/2 ML VIAL IVP PRN (03:01)
--- NOTE | 2024-07-24 03:01 | ANESTHESIA ---
Pre-Anesthesia VS, & Labs - Diagnosis active labor - Procedure labor pain Vital Signs: Temp Pulse Resp BP Pulse Ox O2 Flow Rate 36.9 C 83 16 135/96 H 07/24/24 01:30 07/23/24 22:46 07/23/24 22:46 07/23/24 22:46 Height: 5 ft 5 in Weight (kg): 56.699 kg Body Mass Index: 20.7 BMI Classification: Normal - NPO Other - Is Patient ?: Yes - Lab Results Current Lab Results: Laboratory Tests 07/24/24 01:25: Sodium 134 L, Potassium 4.0, Chloride 105, Carbon Dioxide 20 L, Anion Gap 9.0, BUN 8, Creatinine 0.8, Estimated GFR (MDRD) 110, Glucose 81, Isidoro cium 9.6, Total Bilirubin 0.4, AST 22, ALT 13, Alkaline Phosphatase 203 H, Total Protein 6.6, Albumin 3.9, Globulin 2.7, Albumin/Globulin Ratio 1.4 07/24/24 01:25: WBC 12.4 H, RBC 4.32, Hgb 12.8, Hct 37.9, MCV 87.7, MCH 29.6, MCHC 33.8, RDW 11.7 L, Plt Count 218, MPV 11.4 H, Neut # (Auto) 8.5 H, Lymph # (Auto) 2.4, [place] # (Auto) 0.7, Eos # (Auto) 0.7, Baso # (Auto) 0.1, Absolute Nucleated RBC 0.00, Nucleated RBC % 0.0 07/24/24 01:25: Blood Type O POSITIVE, Antibody Screen NEGATIVE Fish Bones: 07/24/24 01:25 07/24/24 01:25 Home Medications and Allergies Active Medications Carboprost Tromethamine (Carboprost Tromethamine 250 Mcg/Ml Vial) 250 mcg IM .ONCE PRN PRN Reason: Hemorrhage Fentanyl (Fentanyl 100 Mcg/2 Ml Vial) 50 mcg IVP Q1H PRN PRN Reason: Severe Pain (score 7-10) Hydralazine HCl (Hydralazine Inj 20 Mg/Ml Vial) 5 - 10 mg IVP Q20M PRN; Protoc ol PRN Reason: SBP> or= 160 OR DBP> or= 110 Hydralazine HCl (Hydralazine Inj 20 Mg/Ml Vial) 10 mg IVP .ONCE PRN; Protocol PRN Reason: SBP> or= 160 OR DBP> or= 110 Lactated Ringer's (Lr) 500 mls @ 999 mls/hr IV PRN PRN PRN Reason: per protocol Last Infusion: 07/24/24 02:08 Dose: Infused Oxytocin/Sodium Chloride (Pitocin/Sodium Chloride) 500 mls @ 999 mls/hr IV PRN PRN; Protocol PRN Reason: POST- HEMORR PREVENTION Tranexamic Acid (Tranexamic 1,000 Mg/100ml-Nacl) 1,000 mg in 100 mls @ 600 mls/hr IV Q30M PRN PRN Reason: EBL >1200mL and within 3hr Ampicillin Sodium 1 gm/ Sodium (Chloride) 100 mls @ 200 mls/hr IV Q4H ROMAINE Labetalol HCl (Labetalol 20 Mg/4 Ml Syringe) 20 - 80 mg IVP Q10M PRN; Protocol PRN Reason: SBP> or= 160 OR DBP> or= 110 Labetalol HCl (Labetalol 20 Mg/4 Ml Syringe) 20 mg IVP .ONCE PRN; Protocol PRN Reason: SBP> or= 160 OR DBP> or= 110 Labetalol HCl (Labetalol 20 Mg/4 Ml Syringe) 20 - 40 mg IVP Q10M PRN; Protocol PRN Reason: SBP> or= 160 OR DBP> or= 110 Lidocaine HCl (Lidocaine 1% 20 Ml Mdv) 20 ml ID .ONCE PRN PRN Reason: PERINEAL REPAIR Stop: 07/27/24 01:03 Methylergonovine Maleate (Methylergonovine 0.2 Mg/Ml Vial) 0.2 mg IM .ONCE PRN PRN Reason: Hemorrhage Misoprostol (Misoprostol 200 Mcg Tablet) 600 mcg BC .ONCE PRN PRN Reason: Hemorrhage Misoprostol (Misoprostol 200 Mcg Tablet) 800 mcg IN .ONCE PRN PRN Reason: Hemorrhage Nifedipine (Nifedipine 10 Mg Capsule) 10 - 20 mg PO Q20M PRN; Protocol PRN Reason: SBP> or= 160 OR DBP> or= 110 Oxytocin (Oxytocin 10 Unit/Ml Vial) 10 unit IM .ONCE PRN PRN Reason: Step One if no IV access. Sodium Chloride (Sodium Chloride Flush 0.9% 10 Ml Syringe) 10 ml IVP PRN PRN PRN Reason: NEEDED PER PROVIDER ORDERS Sodium Chloride (Sodium Chloride Flush 0.9% 10 Ml Syringe) 10 ml IVP Q8H ROMAINE Terbutaline Sulfate (Terbutaline 1 Mg/Ml Vial) 0.25 mg SUBQ .ONCE PRN PRN Reason: Tachystole Allergies/Adverse Reactions: Allergies Allergy/AdvReac Type Severity Reaction Status Date / Time No Known Drug Allergies Allergy Verified 05/09/24 10:30 Anes History & Medical History - Anesthetic History Anesthesia Complications: reports: No previous complications Family history of Anesthesia Complications: Denies Family history of Malignant Hyperthermia: Denies - Medical History Cardiovascular: reports: None Pulmonary: reports: None Gastrointestinal: reports: None Urinary: reports: None Neuro: reports: None Musculoskeletal: reports: None Endocrine/Autoimmune: reports: None Blood Disorders: reports: None Skin: reports: None Smoking Status: Never smoker Psychosocial: reports: No issues indicated - Obstetrical History : 1 Parity: 0 Events: reports: None Complications: reports: None Exam General: Alert, Oriented x3, Cooperative Dental: WNL Mouth Openin Fingerbreadth Neck Mobility: Normal Mallampati classification: I Thyromental Distance: 4-6 cm Respiratory: Lungs clear Cardiovascular: Regular rate Plan Anesthesia Type: Epidural Consent for Procedure(s) Verified and Reviewed: Yes Code Status: Attempt Resuscitation ASA classification: 2-Mild systemic disease Is this case an emergency?: No
[2024-07-24] MEDS: AMPICILLIN 2 GM in SODIUM CHLORIDE 0.9% MINIBAG 100 ML IV ONE (03:31)
[2024-07-24 04:30] LABS: CREATININE,URINE 38.9 mg/dL; PROTEIN/CREATININE RATIO,URINE 0.2 (<=0.2)
[2024-07-24] MEDS: OXYTOCIN/SODIUM CHLORIDE 500 ML IV SCH (05:02)
[2024-07-24] MEDS: AMPICILLIN 1 GM in SODIUM CHLORIDE 0.9% MINIBAG 100 ML IV SCH (07:11)
[2024-07-24] MEDS ORDERED: HYDROCORTISONE 1% CREAM 28 GM TUBE PR PRN (09:46)
[2024-07-24] MEDS ORDERED: WITCH HAZEL/GLYCERIN 1 PAD TOP PRN (09:46)
--- NOTE | 2024-07-24 09:51 | DELIVERY NOTE ---
Delivery Note - Labor Labor: positive: Spontaneous, Augmented by oxytocin - Delivery Method Delivery Method: positive: Spontaneous vaginal delivery - Presentation Presentation: positive: Vertex, AURELIANO - right occiput anterior - Nuchal Cord Nuchal Cord: positive: None - Amniotic Fluid Description Amniotic Fluid Description: positive: Clear - Episiotomy Type Episiotomy Type: positive: None - Laceration Laceration: positive: None - Delivery Outcome Delivery Outcome: positive: Livebirth - [place]: positive: Placed in direct skin contact with mother, Bulb syringe, Stimulated, Odell used [place] sex: positive: Female - Cord Cord: positive: 3 vessels - Placenta Placenta: positive: Intact, Spontaneous - Estimated Blood Loss Estimated Blood Loss (in cc): 150 - Post Delivery Events Post Delivery Events: positive: No post delivery events - Delivery Comments (Free Text/Narrative) Delivery Comments (Free Text/Narrative): Labor: This 19yo [id number] @ 39.2wks gestation by LMP c/w first trimester U/S presented to [facility] on 07/23/2024 with c/o contractions. She was found to contract every 3-6 minutes. Cervix was 2/80/0 and vertex which was unchanged from the office setting previously in the day. She ambulated x 2 hours and repeat SVE was unchanged however pt reported significant increase in physical discomfort and requests admission for augmentation of labor and pain management. Epidural placed per maternal request. FHR demonstrated Category I pattern throughout labor. Normal labor course. Pitocin initiated for augmentation of labor with maximum infusion rate of 4mU/mL. She progressed to c/c/+2 at 0902 followed by SROM at 0903. : Normal SVB of viable female on 07/24/2024 @ 0920. No nuchal cord. The was placed on maternal abdomen, stimulated, dried, and placed skin to skin. Apgars were 8/9 at 1 and 5 minutes respectively. Pitocin administered via IV for hemostasis. The umbilical cord was allowed to stop pulsating at which time it was doubly clamped by CNM and cut by FOB. Cord blood was obtained. 3V. Fundal massage and gentle cord traction applied for active management of the third stage. Placenta delivered spontaneously and intact at 0925. [id number]. Fourth stage: Uterine fundus firm and there is no excessive bleeding. The perineum, vagina, and cervix were inspected and found to be intact. initiated. Family bonding well. Both mother and baby were left in stable condition.
[2024-07-24] MEDS: IBUPROFEN 800 MG TABLET PO SCH ×2 (10:24→18:23)
[2024-07-24] MEDS: ACETAMINOPHEN 500 MG TABLET PO SCH (10:24)
--- NOTE | 2024-07-24 10:51 | PHARMACY PROGRESS NOTE ---
- Best Possible Medication History Admit Date and Time: 07/24/24 0049 Processed by: Pharmacy Medications reviewed in ED?: No Medication History completed: Yes Patient Interview: Pt unable to participate Secondary Source(s): Physician records, Insurance records As the person ultimately responsible for medication therapy, providers are able to order a medication from an existing home medication list in [facility] via the "Reconcile Routine" prior to Confirmation of that medication by arch support maker. Such practice is discouraged except when the physician, in their clinical judgment, deems that a medical need exists for a medication without regard to previous use.
[2024-07-24 17:16] LABS: BASOPHILS # (AUTO) 0.1 10^3/uL (0.0-0.1); BASOPHILS % (AUTO) 0.3 %; EOSINOPHILS # (AUTO) 0.3 10^3/uL (0.0-0.7); EOSINOPHILS % (AUTO) 1.6 %; HCT - HEMATOCRIT 34.9 % (37.0-47.0); HGB - HEMOGLOBIN 11.7 g/dL (12.0-16.0); LYMPHOCYTES # (AUTO) 2.1 10^3/uL (1.5-3.5); LYMPHOCYTES % (AUTO) 12.2 %; MEAN CORPUSCULAR HEMOGLOBIN 29.6 pg (27.0-31.0); MEAN CORPUSCULAR HGB CONC 33.5 g/dL (32.0-36.0); MEAN CORPUSCULAR VOLUME 88.4 fL (81.0-99.0); MEAN PLATELET VOLUME 11.2 fL (7.9-10.8); MONOCYTES # (AUTO) 0.9 10^3/uL (0.0-1.0); MONOCYTES % (AUTO) 5.4 %; NEUTROPHILS % (AUTO) 80.1 %; PLT - PLATELET COUNT 189 10^3/uL (130-450); RED BLOOD COUNT 3.95 10^6/uL (4.20-5.40); RED CELL DISTRIBUTION WIDTH 11.7 % (12.0-15.0); WHITE BLOOD COUNT 17.4 x10^3/uL (4.8-10.8)
[2024-07-24 17:32] LABS: ALBUMIN 3.3 g/dL (3.2-5.5); ALBUMIN/GLOBULIN RATIO 1.3 (1.0-2.2); BILIRUBIN,TOTAL 0.6 mg/dL (0.2-1.0); CALCIUM 8.9 mg/dL (8.5-10.3); CREATININE 0.9 mg/dL (0.6-1.3); POTASSIUM 3.6 mmol/L (3.5-4.5); TOTAL PROTEIN 5.8 g/dL (6.4-8.9)
[2024-07-25 05:45] LABS: HCT - HEMATOCRIT 35.7 % (37.0-47.0); HGB - HEMOGLOBIN 11.7 g/dL (12.0-16.0); MEAN CORPUSCULAR HEMOGLOBIN 29.3 pg (27.0-31.0); MEAN CORPUSCULAR HGB CONC 32.8 g/dL (32.0-36.0); MEAN CORPUSCULAR VOLUME 89.5 fL (81.0-99.0); MEAN PLATELET VOLUME 11.6 fL (7.9-10.8); RED BLOOD COUNT 3.99 10^6/uL (4.20-5.40); RED CELL DISTRIBUTION WIDTH 11.8 % (12.0-15.0); WHITE BLOOD COUNT 13.5 x10^3/uL (4.8-10.8)
[2024-07-25 05:56] LABS: ALBUMIN 3.2 g/dL (3.2-5.5); ALBUMIN/GLOBULIN RATIO 1.4 (1.0-2.2); BILIRUBIN,TOTAL 0.4 mg/dL (0.2-1.0); CALCIUM 9.1 mg/dL (8.5-10.3); CREATININE 0.9 mg/dL (0.6-1.3); POTASSIUM 4.2 mmol/L (3.5-4.5); TOTAL PROTEIN 5.5 g/dL (6.4-8.9)
--- NOTE | 2024-07-25 11:17 | PROVIDER PROGRESS NOTE ---
Subjective - Subjective Subjective: S: Bonding well with baby. Pumping and feeding with formula supplementation per her preference without difficulty. She is ambulating and tolerating a regular diet. She is urinating without difficulty and her lochia is normal. Her pain is well controlled with oral medications. She has experienced an intermittent headache that is relieves with tylenol. She denies visual disturbances, RUQ or epigastric pain and denies edema. O: Heart RRR w/o M/G/R, lungs CTAB, abdomen soft and nontender with fundus firm at U-1, perineum intact, light lochia rubra, bilateral LE's no edema. Mood is good. Assessment: 19yo -->P1 PPD#1 s/p TSVD viable female Gestational hypertension - mild range pressures intermittently. Pre-E labs WNL. Monitoring creatinine (Admission 0.8-->0.9) Pumping and supplementing with formula Plan: Repeat CBC & CMP 24 hours from last draw. Closely monitor BPs - parameters for provider notification reviewed with primary RN. Continue routine care and medications. Evaluate for discharge home tomorrow. Objective - Vital Signs/Intake & Output Vital Signs: Vital Signs x48h Temp Pulse Resp BP Pulse Ox 07/25/24 09:30 36.8 C 60 18 128/95 H 98 07/25/24 06:06 36.7 C 67 16 140/103 H Intake & Output: Intake & Output 07/22/24 07/23/24 07/24/24 07/25/24 23:59 23:59 23:59 23:59 Intake Total 1200.000 Output Total 1350 Balance -150.000 - Lab Results Fish Bones: 07/25/24 05:22 07/25/24 05:22 Other Labs: Lab Results x24hrs 07/25/24 07/25/24 07/24/24 Range/Units 05:22 05:22 17:11 WBC 13.5 H (4.8-10.8) x10^3/uL RBC 3.99 L (4.20-5.40) 10^6/uL Hgb 11.7 L (12.0-16.0) g/dL Hct 35.7 L (37.0-47.0) % MCV 89.5 (81.0-99.0) fL MCH 29.3 (27.0-31.0) pg MCHC 32.8 (32.0-36.0) g/dL RDW 11.8 L (12.0-15.0) % Plt Count 186 (130-450) 10^3/uL MPV 11.6 H (7.9-10.8) fL Neut # (Auto) (1.5-6.6) 10^3/uL Lymph # (Auto) (1.5-3.5) 10^3/uL [place] # (Auto) (0.0-1.0) 10^3/uL Eos # (Auto) (0.0-0.7) 10^3/uL Baso # (Auto) (0.0-0.1) 10^3/uL Absolute Nucleated RBC x10^3/uL Nucleated RBC % /100WBC Sodium 136 136 (135-145) mmol/L Potassium 4.2 3.6 (3.5-4.5) mmol/L Chloride 107 107 (101-111) mmol/L Carbon Dioxide 25 21 (21-32) mmol/L Anion Gap 4.0 L 8.0 (6-13) BUN 9 9 (6-20) mg/dL Creatinine 0.9 0.9 (0.6-1.3) mg/dL Estimated GFR (MDRD) 96 96 (>89) Glucose 71 L 120 H (74-104) mg/dL Calcium 9.1 8.9 (8.5-10.3) mg/dL Total Bilirubin 0.4 0.6 (0.2-1.0) mg/dL AST 18 19 (10-42) IU/L ALT 11 13 (10-60) IU/L Alkaline Phosphatase 153 H 151 H (42-121) IU/L Total Protein 5.5 L 5.8 L (6.4-8.9) g/dL Albumin 3.2 3.3 (3.2-5.5) g/dL Globulin 2.3 2.5 (2.1-4.2) g/dL Albumin/Globulin Ratio 1.4 1.3 (1.0-2.2) // Range/Units 17:11 WBC 17.4 H (4.8-10.8) x10^3/uL RBC 3.95 L (4.20-5.40) 10^6/uL Hgb 11.7 L (12.0-16.0) g/dL Hct 34.9 L (37.0-47.0) % MCV 88.4 (81.0-99.0) fL MCH 29.6 (27.0-31.0) pg MCHC 33.5 (32.0-36.0) g/dL RDW 11.7 L (12.0-15.0) % Plt Count 189 (130-450) 10^3/uL MPV 11.2 H (7.9-10.8) fL Neut # (Auto) 14.0 H (1.5-6.6) 10^3/uL Lymph # (Auto) 2.1 (1.5-3.5) 10^3/uL [place] # (Auto) 0.9 (0.0-1.0) 10^3/uL Eos # (Auto) 0.3 (0.0-0.7) 10^3/uL Baso # (Auto) 0.1 (0.0-0.1) 10^3/uL Absolute Nucleated RBC 0.00 x10^3/uL Nucleated RBC % 0.0 /100WBC Sodium (135-145) mmol/L Potassium (3.5-4.5) mmol/L Chloride (101-111) mmol/L Carbon Dioxide (21-32) mmol/L Anion Gap (6-13) BUN (6-20) mg/dL Creatinine (0.6-1.3) mg/dL Estimated GFR (MDRD) (>89) Glucose (74-104) mg/dL Calcium (8.5-10.3) mg/dL Total Bilirubin (0.2-1.0) mg/dL AST (10-42) IU/L ALT (10-60) IU/L Alkaline Phosphatase (42-121) IU/L Total Protein (6.4-8.9) g/dL Albumin (3.2-5.5) g/dL Globulin (2.1-4.2) g/dL Albumin/Globulin Ratio (1.0-2.2)
[2024-07-25] MEDS: SIMETHICONE CHEW 80 MG TABLET PO PRN (21:10)
[2024-07-25] MEDS: DOCUSATE SODIUM 100 MG CAPSULE PO SCH (21:11)
[2024-07-26 06:18] LABS: ALBUMIN 3.3 g/dL (3.2-5.5); ALBUMIN/GLOBULIN RATIO 1.2 (1.0-2.2); BILIRUBIN,TOTAL 0.3 mg/dL (0.2-1.0); CREATININE 0.9 mg/dL (0.6-1.3); POTASSIUM 4.2 mmol/L (3.5-4.5)
[2024-07-26 06:27] LABS: BASOPHILS # (AUTO) 0.1 10^3/uL (0.0-0.1); BASOPHILS % (AUTO) 0.6 %; EOSINOPHILS # (AUTO) 0.7 10^3/uL (0.0-0.7); EOSINOPHILS % (AUTO) 7.1 %; HCT - HEMATOCRIT 35.7 % (37.0-47.0); HGB - HEMOGLOBIN 11.8 g/dL (12.0-16.0); LYMPHOCYTES # (AUTO) 3.6 10^3/uL (1.5-3.5); LYMPHOCYTES % (AUTO) 35.2 %; MEAN CORPUSCULAR HEMOGLOBIN 29.7 pg (27.0-31.0); MEAN CORPUSCULAR HGB CONC 33.1 g/dL (32.0-36.0); MEAN CORPUSCULAR VOLUME 89.9 fL (81.0-99.0); MEAN PLATELET VOLUME 11.7 fL (7.9-10.8); MONOCYTES # (AUTO) 0.5 10^3/uL (0.0-1.0); MONOCYTES % (AUTO) 4.6 %; NEUTROPHILS # (AUTO) 5.4 10^3/uL (1.5-6.6); NEUTROPHILS % (AUTO) 52.1 %; PLT - PLATELET COUNT 205 10^3/uL (130-450); RED BLOOD COUNT 3.97 10^6/uL (4.20-5.40); RED CELL DISTRIBUTION WIDTH 11.9 % (12.0-15.0); WHITE BLOOD COUNT 10.3 x10^3/uL (4.8-10.8)
--- NOTE | 2024-07-26 07:20 | Discharge Plan ---
Discharge Plan Problem Reviewed?: Yes Disposition: Home, Self Care Condition: Stable Diet: Regular Activity Restrictions: No Restrictions Shower Restrictions: No Driving Restrictions: No Instruction Topics: Depression No Smoking: If you smoke, Please STOP! Call for help.
--- NOTE | 2024-07-26 07:20 | DISCHARGE SUMMARY ---
Discharge Summary Condition at Discharge: Stable Discharge Disposition: 01 Home, Self Care - HPI History of Present Illness: Date of Admission: 07/23/2024 Date of Discharge: 07/26/2024 Diagnosis on admission: 1. 19 yo @ 39+1 weeks gestation 8+6 wk U/S 2. Gestational hypertension 3. Early labor 4. FHR 120 Cat 1 5. GBS POSITIVE Diagnosis on Discharge 1. 19 yo s/p 2. PPD #2 2. Intact perineum 3. Bottle feeding Physical exam: Normocephalic, atraumatic Heart: baseline bradycardia (55bpm) w/o M/G/R Lungs CTAB Normal uterine involution, FF below umbilicus scant rubra bleeding minimal perineal discomfort. Bilateral LE's no edema Mood is good. Brief History: She is a patient of [facility] who presented on 07/23/2024 with complaints of contractions. She was found to be akin regularly and progressed to complete with minimal intervention. Met diagnostic criteria for gestational hypertension. Effective epidural for labor analgesia. She spontaneously delivered a viable female apgars 8 and 9 at 1 and 5 minutes respectively. EBL 150 ml. intact perineum. weight: 2943g. Met criteria for gestational hypertension antenatally. Overall unremarkable labs H&H 11.8/35.7%, PLT 205, Serum Creatinine 0.9 (admission Creatinine 0.8, stable at 0.9 since 07/24/2024). Most recent BP 122/90, 128/90, 136/81. She has been doing well in her course. She is ambulating and tolerating a regular diet. She is urinating without difficulty and her lochia is normal. Her pain is well controlled without narcotic management. She will be discharged to home today on day 2 and encouraged IBU, tylenol and stool softeners PRN. Will send in prescription for cabergoline given her desire to suppress breast milk production. She intends to follow up in person with [facility] at previously scheduled visit on July 29 @ 11:30. She has been given precautions to call if she has any new or worsening sx such as fevers, chills, abdominal pain, increasing bleeding, or foul smelling vaginal lochia. preeclamptic precautions reviewed as well. Patient has been discharged with preeclamptic risk blue bracelet and encouraged to wear it throug h her course. VZV: non-immune (vaccine ordered) Rubella: immune RH: O+ - ALLERGIES Allergies/Adverse Reactions: Allergies Allergy/AdvReac Type Severity Reaction Status Date / Time No Known Drug Allergies Allergy Verified 05/09/24 10:30 - MEDICATIONS Home Medications: Ambulatory Orders Medication Instructions Recorded Confirmed Aspirin [[place] Aspirin] 81 mg PO DAILY 07/24/24 07/24/24 Sertraline HCl [Zoloft] 50 mg PO DAILY 07/24/24 07/24/24 - LABS Result Diagrams: 07/26/24 05:56 07/26/24 05:56 - QUALITY (Female Hip Fx Only) Was patient sent home on osteoporosis medication?: No - TIME SPENT Time Spent in Discharge (Minutes): 30
[2024-07-26 08:59] VITALS: BP 136/81; O2SAT 100
[2024-07-26] MEDS: VARICELLA VACCINE LIVE/PF 1,350 UNIT/0.5 ML VIAL SUBQ ONE (12:59)
--- NOTE | 2024-07-26 13:34 | Labor Flowsheet ---
Labor Flowsheet Datetime Report Generated by CPN: 07/26/2024 13:34 Datetime: 07/26/2024 08:55 VITAL SIGNS NBP Sys/Barbra/Mean (mmHg): 136 : 81 : 93 Pulse: 63 Datetime: 07/25/2024 09:00 MATERNAL ASSESSMENT Level of Consciousness: Alert DTR's/Clonus: DTRs 2+; No Clonus Headache: Denies Breath Sounds, Left: Clear and Equal Breath Sounds, Right: Clear and Equal Nausea/Vomiting: Denies RUQ Epigastric Pain: Denies Datetime: 07/25/2024 08:58 SpO2 (%): 96 Datetime: 07/24/2024 16:55 Stage of : Datetime: 07/24/2024 12:00 PAIN Pain Scale: 0 Pain Presence: None/Denies Pain Relief Measures: Comfort Measures Datetime: 07/24/2024 11:00 Pain Type: Dull; Ache Pain Location: Head Datetime: 07/24/2024 10:45 Respirations: 18 Temperature (C): 36.9 Temperature Route: Oral Datetime: 07/24/2024 10:35 Epidural Procedure Other: Cath Removed Anesthesia Comments: epidural dc'd; tip intact Datetime: 07/24/2024 10:15 Pain Assessment Comments: neck and shoulder massage helped Datetime: 07/24/2024 09:15 UTERINE ACTIVITY Monitor Mode: External Frequency (min): 2-3 Quality: Strong Duration (sec): 60-80 Pattern: Normal: <= 5 Contractions in 10 Minutes Resting Tone (Palpate): Relaxed ASSESSMENT A Monitor Mode: Telemetry FHR Baseline Rate : 150 FHR Baseline Changes: No Baseline Change Variability: Moderate 6-25 bpm Accelerations: 15X15 Decelerations: Early; Variable Actions for Decelerations: Other Comments: preparing to push Datetime: 07/24/2024 09:14 LaborFlag: Labor Datetime: 07/24/2024 09:09 I/O Interventions: Harrell Discontinued Datetime: 07/24/2024 09:03 Membranes Rupture Method: Spontaneous Amniotic Fluid Color: Clear Amniotic Fluid Amount: Small Amniotic Fluid Odor: Normal Datetime: 07/24/2024 09:02 VAGINAL EXAM Dilatation (cm): 10.0 Effacement (%): 100 Station: 1 Exam by: Bridget Cervix, Consistency: Soft Datetime: 07/24/2024 08:56 Provider Reviewed Strip: Yes Strip Reviewed by: Bridget COMMUNICATION Communication: Provider at Bedside Provider Notified (Name): Bridget Datetime: 07/24/2024 08:45 Pitocin Checklist: At Least 1 Acceleration of 15 bpm x 15 Seconds in 30 Minutes or Adequate Variabi lity; No More than 1 Late Deceleration Occurred in Past 30 Minutes; No More than 2 Variable Decelerat ions > 60 Seconds in Duration and decreasing >60 bpm in 30 minutes; No More than 5 Uterine Contractio ns in 10 Minutes for any 20 Minute Interval; Uterus Palpates Soft between Contractions Contraction Comments: contractions coupling Datetime: 07/24/2024 08:30 Category: Category I Datetime: 07/24/2024 08:15 Oxygen Method: Room Air Datetime: 07/24/2024 07:58 Patient Position/Activity: Semi-Fowlers Datetime: 07/24/2024 07:45 Comfort Measures: Anesthesia Notified Datetime: 07/24/2024 07:38 MEDICATIONS Pitocin (milliunits): Decreased to @ decreased from 6 to 3 at 0740 Datetime: 07/24/2024 07:30 Monitor Interventions for UA: [place] Adjusted Pain Coping: Requesting Pain Medication or Epidural Datetime: 07/24/2024 07:25 Notification Reason: Status Update; Labor Status; Membrane Status; Pain Communication Comments: Odalis updated Datetime: 07/24/2024 07:21 Membrane Status: Bulging Vaginal Bleeding: None Cervix, Position: Midposition Datetime: 07/24/2024 04:57 Patient Care Comments: runners w peanut Datetime: 07/24/2024 03:02 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[employer] Datetime: 07/24/2024 02:37 Epidural Procedure: Test Dose Datetime: 07/24/2024 02:26 PROCEDURE TIME OUT Procedure Verify: Correct Patient Identity; Correct Side and Site are Marked; Accurate Procedure Co nsent Form; Agreement on Procedure to be Done; Correct Patient Position; Relevant Images and Results are Properly Labeled and Displayed; Addressed Need to Administer Antibiotics or Fluids for Irrigation ; Safety Precautions Based on Patient History or Medication Use ANESTHESIA Epidural Positioning: Sitting Datetime: 07/24/2024 02:06 PATIENT CARE IV/Blood Work: IV Bolus Given ml @ 500 Datetime: 07/24/2024 00:31 Membranes Ruptured Date/Time: 07/24/2024 09:03
== END 2024-07-26 13:30 | disposition home or self-care (01) | DRG 807 ==
LOC: WFO 22:38 → FBP 22:41 → WFO 07-24 00:48 → FBP 07-24 00:49
PROVIDERS: ADMIT Nurse Practitioner Obstetrics & Gynecology; ATTEND Nurse Practitioner
PROC: 10E0XZZ Delivery of Products of Conception, External Approach (ICD-10-PCS; principal; 2024-07-24)
DX: O13.4 Gestational [pregnancy-induced] hypertension without significant proteinuria, complicating childbirth (principal); Z37.0 Single live birth; O99.824 Streptococcus B carrier state complicating childbirth; O99.344 Other mental disorders complicating childbirth; F41.9 Anxiety disorder, unspecified; Z3A.39 39 weeks gestation of pregnancy
CPT/HCPCS: 36415; 59025; 59409; 80053; 82570; 84156; 85025; 85027; 86850; 86900; 86901; 90716; 93005; 99215; A9270; J7120